=== PATIENT | female | born 1965 | race Caucasian/White ===

== ENCOUNTER 2018-02-23 12:29 | Inpatient (IN) | payer BC, SELFPAY ==
[2018-02-04 08:24] VITALS: BP 189/101; PULSE 54; RESP 16; TEMP 36.6; O2SAT 100; BMI 24.1
[2018-02-04 09:09] LABS: Absolute Lymphocyte Count 2.08 X10^3/ul (0.83-4.51); Absolute Neutrophil Count 4.3 X10^3/uL (2.0-7.7); Basophil# 0.05 X10^3/uL; Basophil% 0.7 % (0-1); Eosinophil# 0.17 X10^3/uL; Eosinophils% 2.3 % (0-5); Hematocrit 42.6 % (37-47); Hemoglobin 14.6 g/dl (12.0-15.0); Lymphocyte # 2.08 X10^3/ul (4.0); Mean Corp Hgb Conc 34.3 g/gl (32-36); Mean Corpuscular Hgb 32.2 pg (27.0-32.0); Mean Corpuscular Volume 93.8 fL (81-99); Mean Platelet Vol. 11.4 fl (6.2-12.0); Monocyte# 0.83 X10^3/uL; Monocyte% 11.2 % (0-10); Neutrophil # 4.28 X10^3/uL (2.7-7.7); Neutrophil % 57.5 % (47-70); POSITIVE COUNT NO; POSITIVE DIFFERENTIAL NO; POSITIVE MORPHOLOGY NO; Platelet Count 215 K/mm3 (150-450); RBC Distribution Width CV 12.8 % (11.6-14.6); RBC Distribution Width SD 43.1 fl (35.1-43.9); Red Blood Count 4.54 M/mm3 (4.2-5.4); White Blood Count 7.4 K/mm3 (4.4-11.0)
[2018-02-04 09:32] LABS: Anion Gap 6 (5-15); BUN 14 mg/dL (7-18); BUN/Creat Ratio 18.9 RATIO (10-20); Calcium,Total 9.1 mg/dL (8.5-10.1); Chloride 108 mmol/L (98-107); Creatinine, Serum 0.74 mg/dL (0.55-1.02); EST Glomerular Filtration Rate 87 mL/min (>60); Est Glom Filt Rate - Afr Amer 106 mL/min (>60); Estimated Creatinine Clearance 67.11 ml/min; Glucose 73 mg/dL (74-106); Potassium 4.2 mmol/L (3.5-5.1); Sodium Level 143 mmol/L (136-145)
--- NOTE | 2018-02-04 13:46 | PCM.HP.BLA ---
History and Physical DATE OF SURGERY: 02/23/2018 SCHEDULED PROCEDURE: Left total knee arthroplasty HISTORY OF PRESENT ILLNESS: This is a 52-year-old female who is been having ongoing left knee pain since June 2017. Patient has had a previous right total knee arthroplasty in 2013 at an outside institution. Patient states the left knee is constant pain. She has increased pain going up and down stairs, walking any amount of distance, driving, weightbearing and twisting activities. Ice is been temporarily helpful. Patient has difficult time with activities of daily living including housework, shopping, and leisure activities such as water skiing, running, and walking. Patient feels unsafe riding a motorcycle and picking up weights and walking. Patient does report start up pain. Pain is primarily located over the medial joint line and behind her patella. Pain does awaken her at night. Patient has tried conservative measures consisting of rest, ice, heat, elevation with minimal relief. She has had a previous corticosteroid injection with no relief in symptoms. She has also been through series of Euflexxa injections with no relief in symptoms. Patient has tried home exercises with no relief. She has tried bracing for the past 5 months with no relief. Patient has been on Percocet the last 4-1/2 years for pain in the right knee. She denies previous surgery on the left knee. After failing conservative measures and discussing all treatment options with Dr. Carty the patient would like to proceed with a left total knee arthroplasty. Patient currently denies any chest pain, shortness of breath, fevers chills, recent infections. We are obtaining surgical clearance from patient's primary care physician Dr. Corrigan. REVIEW OF SYSTEMS: ROS: Const: Denies anorexia, anxiety, change in appetite, fever, difficulty sleeping, weight change. CV: Denies chest pain, heart murmur, irregular heartbeat and peripheral vascular disease. Resp: Denies asthma, cough, pneumonia, sleep apnea, shortness of breath, tuberculosis and wheezing. GI: Denies constipation, diarrhea, heartburn, nausea, rectal itching, bloody stools and vomiting. : . (F Genital Sx) Denies incontinence. Musculo: Denies leg swelling, pain, trouble walking and weakness. Skin: Denies Raynaud's, history of shingles and tattoo. Neuro: Reports numbness/tingling but denies ambulatory dysfunction, dizziness and tremor. Psych: Denies anxiety, depression, insomnia, mental illness and stress. Nain/Lymph: Denies anemia, bleeding/bruising tendency and past transfusion. Reviewed, no changes. PAST MEDICAL HISTORY: Advance Care Plan: No Advance Directives Effective Date: 06/25/2017 PMH: Medical Problems: None Accidents: Fracture - RT LEG, RT ARM RT Knee Injury - (02/06/2011) WORK RELATED Surgical Hx: Appendectomy, Tonsillectomy, Tubal Ligation Arthroscopy - RT RTC X3 RT Knee Arthroscopy - RUSH RT TKR - (2012) NOEL @ [facility] Anesthesia Complications: None Assistive Devices: None Reviewed, no changes. 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 Personal Habits: Cigarette Use: Patient is a current cigarette smoker, smokes every day.Alcohol: Denies use.Drug Use: Denies Use.Enjoy Exercising: Never Exercises. Reviewed and updated. VITALS: Ht: 61.5 Wt: 130lb Wt k.[id number] BMI: 24.2 BP: 140/80 Pulse: 78 Resp: 16 T: 97.8 T: 36.6C ALLERGIES: No Known Drug Allergy MEDICATIONS: Percocet 5-325 mg 1-2 po q 4-6 hr prn pain, Naproxen 500 mg 1 by mouth twice a day as needed with food PRE-OP EXAM: General appearance:NORMAL Other: Eyes: Conjunctivae and lids: NORMAL Pupils: ERR Ears, Nose, Mouth, and Throat: NORMAL Other: Inspection of lips, teeth and gums: NORMAL Other: Neck: Examination of neck: no masses noted. Respiratory: Assessment of respiratory effort: NORMAL Other: Auscultation of lungs: clear to auscultation no wheezes, rhonchi or rales. Cardiovascular: Auscultation of heart: regular rate and rhythm, no murmurs, gallops or rubs. Exam of carotid arteries: NORMAL Other: Gastrointestinal: Exam of abdomen: soft, nontender, nondistended bowel sounds present. PHYSICAL EXAMINATION: Patient walks with an antalgic gait. There is tenderness to palpation over the left knee on the medial joint line. Mild effusion is appreciated. Patient has stable varus and valgus stress testing. Correctable varus alignment. There is positive crepitus with motion. Range of motion patient lacks 3? of full extension to 120? of flexion. Sensations intact light touch. IMAGING STUDIES: 1. X-rays were obtained on January 28, 2018 of the left knee including sunrise, lateral, bilateral standing AP and tunnel reveals varus alignment with medial joint space narrowing, subchondral sclerosis, and osteophyte formation consistent with severe osteoarthritis. IMPRESSION: 1. Left knee severe osteoarthritis with varus alignment PLAN: Dr. Carty did discuss and review with the patient all treatment options including surgical versus nonsurgical. Patient wishes to proceed with above-stated procedure. Potential risks, benefits, and complications of this procedure were discussed in detail including but not limited to , infection, nerve and blood vessel damage, persistent pain, numbness, tingling, paresthesias, blood clot, pulmonary embolism, and requirement for further surgery. The patient expressed full understanding has no further questions for the doctor. Patient does agree to proceed with the above-stated procedure and has signed the surgery consent form. ___ I have re-examined the patient. There are no clinical changes since date of exam. ___ See progress notes for changes. ___ Dictated on admission Date: Time: Signature:
--- NOTE | 2018-02-04 13:53 | HP.PCM_ITS ---
History and Physical DATE OF SURGERY: 02/23/2018 SCHEDULED PROCEDURE: Left total knee arthroplasty HISTORY OF PRESENT ILLNESS: This is a 52-year-old female who is been having ongoing left knee pain since June 2017. Patient has had a previous right total knee arthroplasty in 2013 at an outside institution. Patient states the left knee is constant pain. She has increased pain going up and down stairs, walking any amount of distance, driving, weightbearing and twisting activities. Ice is been temporarily helpful. Patient has difficult time with activities of daily living including housework, shopping, and leisure activities such as water skiing, running, and walking. Patient feels unsafe riding a motorcycle and picking up weights and walking. Patient does report start up pain. Pain is primarily located over the medial joint line and behind her patella. Pain does awaken her at night. Patient has tried conservative measures consisting of rest, ice, heat, elevation with minimal relief. She has had a previous corticosteroid injection with no relief in symptoms. She has also been through series of Euflexxa injections with no relief in symptoms. Patient has tried home exercises with no relief. She has tried bracing for the past 5 months with no relief. Patient has been on Percocet the last 4-1/2 years for pain in the right knee. She denies previous surgery on the left knee. After failing conservative measures and discussing all treatment options with Dr. Carty the patient would like to proceed with a left total knee arthroplasty. Patient currently denies any chest pain, shortness of breath, fevers chills, recent infections. We are obtaining surgical clearance from patient's primary care physician Dr. Corrigan. REVIEW OF SYSTEMS: ROS: Const: Denies anorexia, anxiety, change in appetite, fever, difficulty sleeping , weight change. CV: Denies chest pain, heart murmur, irregular heartbeat and peripheral vascular disease. Resp: Denies asthma, cough, pneumonia, sleep apnea, shortness of breath, tuberculosis and wheezing. GI: Denies constipation, diarrhea, heartburn, nausea, rectal itching, bloody stools and vomiting. : . (F Genital Sx) Denies incontinence. Musculo: Denies leg swelling, pain, trouble walking and weakness. Skin: Denies Raynaud's, history of shingles and tattoo. Neuro: Reports numbness/tingling but denies ambulatory dysfunction, dizziness and tremor. Psych: Denies anxiety, depression, insomnia, mental illness and stress. Nain/Lymph: Denies anemia, bleeding/bruising tendency and past transfusion. Reviewed, no changes. PAST MEDICAL HISTORY: Advance Care Plan: No Advance Directives Effective Date: 06/25/2017 PMH: Medical Problems: None Accidents: Fracture - RT LEG, RT ARM RT Knee Injury - (02/06/2011) WORK RELATED Surgical Hx: Appendectomy, Tonsillectomy, Tubal Ligation Arthroscopy - RT RTC X3 RT Knee Arthroscopy - [facility] RT TKR - (2012) [facility] @ [facility] Anesthesia Complications: None Assistive Devices: None Reviewed, no changes. 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 Personal Habits: Cigarette Use: Patient is a current cigarette smoker, smokes every day.Alcohol: Denies use.Drug Use: Denies Use.Enjoy Exercising: Never Exercises. Reviewed and updated. VITALS: Ht: 61.5 Wt: 130lb Wt k.968 BMI: 24.2 BP: 140/80 Pulse: 78 Resp: 16 T: 97.8 T: 36.6C ALLERGIES: No Known Drug Allergy MEDICATIONS: Percocet 5-325 mg 1-2 po q 4-6 hr prn pain, Naproxen 500 mg 1 by mouth twice a day as needed with food PRE-OP EXAM: General appearance:NORMAL Other: Eyes: Conjunctivae and lids: NORMAL Pupils: ERR Ears, Nose, Mouth, and Throat: NORMAL Other: Inspection of lips, teeth and gums: NORMAL Other: Neck: Examination of neck: no masses noted. Respiratory: Assessment of respiratory effort: NORMAL Other: Auscultation of lungs: clear to auscultation no wheezes, rhonchi or rales. Cardiovascular: Auscultation of heart: regular rate and rhythm, no murmurs, gallops or rubs. Exam of carotid arteries: NORMAL Other: Gastrointestinal: Exam of abdomen: soft, nontender, nondistended bowel sounds present. PHYSICAL EXAMINATION: Patient walks with an antalgic gait. There is tenderness to palpation over the left knee on the medial joint line. Mild effusion is appreciated. Patient has stable varus and valgus stress testing. Correctable varus alignment. There is positive crepitus with motion. Range of motion patient lacks 3? of full extension to 120? of flexion. Sensations intact light touch. IMAGING STUDIES: 1. X-rays were obtained on January 28, 2018 of the left knee including sunrise, lateral, bilateral standing AP and tunnel reveals varus alignment with medial joint space narrowing, subchondral sclerosis, and osteophyte formation consistent with severe osteoarthritis. IMPRESSION: 1. Left knee severe osteoarthritis with varus alignment PLAN: Dr. Carty did discuss and review with the patient all treatment options including surgical versus nonsurgical. Patient wishes to proceed with above- stated procedure. Potential risks, benefits, and complications of this procedure were discussed in detail including but not limited to , infection , nerve and blood vessel damage, persistent pain, numbness, tingling, paresthesias, blood clot, pulmonary embolism, and requirement for further surgery. The patient expressed full understanding has no further questions for the doctor. Patient does agree to proceed with the above-stated procedure and has signed the surgery consent form. ___ I have re-examined the patient. There are no clinical changes since date of exam. ___ See progress notes for changes. ___ Dictated on admission Date: Time: Signature:
--- NOTE | 2018-02-19 11:17 | CASEMGMT ---
Addendum entered by Jolanta Brewster 02/19/18 11:29: Patient states that her cell phone was damaged and she will have a new phone on Friday 02/23. She states to please call her 's cell phone at [phone] for any needs. Home phone number remains the same. Original Note: DAMIÁN SHORE attempted to perform pre-op assessment of discharge needs. Call placed to patient with no answer and no option for voicemail.
--- NOTE | 2018-02-19 11:24 | CASEMGMT ---
DAMIÁN SHORE called and spoke with patient regarding discharge needs after upcoming surgery. Patient states that she has a walker, cane, elevated toilet seat, seat in shower, machine to assist with bending leg, and two ice coolers for legs. She has this equipment from a previous knee surgery in 2013. She denies need for further DME. Patient states that she lives with her and children in a two story home. She has first floor setup, with bedroom and shower. Patient states that she is setup outpatient therapy, with Dr. Carty's on [address]. She states that her will be providing transportation. She is not certain of her first appointment at this time, but does have one scheduled and written down elsewhere. She states that she will need to have her other knee done soon after this surgery. She is interested in discussing home health, as her is a truck shop supervisor and may not always be able to transport her. She states that he will be able to drive her to outpatient therapy for the first couple weeks though. DAMIÁN SHORE will follow up with patient after surgery and will assist with discharge needs.
--- NOTE | 2018-02-23 10:55 | RAD_ITS ---
STUDY: X-RAY - LEFT KNEE REASON FOR EXAM: Female, 52 years old. Postop total knee arthroplasty. TECHNIQUE: 2 view(s) of the knee. COMPARISON: None. Findings: There is a recent total knee arthroplasty. The femoral and tibial components appear in satisfactory position. There has been patellar resurfacing. The visualized femoral, tibial, and fibular shafts are unremarkable. RAD/Knee 1 or 2 Views IMPRESSION: Satisfactory appearance of a total knee arthroplasty. Electronically Signed: Brandon Sierra MD at 22:30 EDT , Service support ,
--- NOTE | 2018-02-23 12:29 | DT_ITS ---
This patient was seen during an EMR downtime February 22, 2018 - March 01, 2018. This patient may have a combination of paper and electronic documentation or all paper documentation. All documentation is viewable within the e-chart portion of [facility] for each patient visit.
[2018-02-27 08:42] LABS: Hematocrit 35.2 % (37-47); Hemoglobin 11.4 g/dl (12.0-15.0); Mean Corp Hgb Conc 32.4 g/gl (32-36); Mean Corpuscular Hgb 31.4 pg (27.0-32.0); Platelet Count 214 K/mm3 (150-450); RBC Distribution Width CV 12.7 % (11.6-14.6); RBC Distribution Width SD 43.5 fl (35.1-43.9); Red Blood Count 3.63 M/mm3 (4.2-5.4); Scan Indicated on CBC? Y/N NO; White Blood Count 19.2 K/mm3 (4.4-11.0)
[2018-02-27 09:27] LABS: Anion Gap 7 (5-15); BUN 13 mg/dL (7-18); BUN/Creat Ratio 16.9 RATIO (10-20); Calcium,Total 8.4 mg/dL (8.5-10.1); Chloride 107 mmol/L (98-107); Creatinine, Serum 0.77 mg/dL (0.55-1.02); EST Glomerular Filtration Rate 84 mL/min (>60); Est Glom Filt Rate - Afr Amer 102 mL/min (>60); Estimated Creatinine Clearance 64.49 ml/min; Glucose 133 mg/dL (74-106); Sodium Level 142 mmol/L (136-145)
== END 2018-02-24 18:15 | disposition home or self-care (01) | DRG 470 ==
LOC: MS3 02-24 10:29
PROVIDERS: Admitting Provider Specialist; Family Provider Family Medicine; PCP Family Medicine; Visit Provider Specialist
PROC: 0SRD0J9 Replacement of Left Knee Joint with Synthetic Substitute, Cemented, Open Approach (ICD-10-PCS; CPT 27447; principal; 2018-02-23 08:30)
DX: M17.12 Unilateral primary osteoarthritis, left knee (principal); F17.210 Nicotine dependence, cigarettes, uncomplicated; Z96.651 Presence of right artificial knee joint; I10 Essential (primary) hypertension; M19.90 Unspecified osteoarthritis, unspecified site
CPT/HCPCS: 36415; 73560; 80048; 85025; 85027; 87081; 93005; 97116; 97162; 97166; 97530; 97535; C1776; J7120; A4216; J2405

== ENCOUNTER → 2022-12-09 | Outpatient (CLI) | payer OTHER, SELFPAY ==
[2022-12-09 10:47] LABS: Mucous, Urine 0 SEEN /hpf (<or=2+)
[2022-12-09 11:31] LABS: Color, Urine Yellow (Yellow); Glucose, Dipstick Normal (Normal); Ketone-Dipstick Negative (Negative); Leukocyte Esterase-Dipstick 500 /ul (Negative); Nitrite-Dipstick Positive (Negative); Occult Blood-Urine 50 /ul (Negative); Protein-Dipstick 30 mg/dl (Negative); Specific Gravity, Urine 1.015 (1.002-1.030); Urine Bilirubin Dipstick Negative (Negative); Urine Clarity Clear (Clear); Urine Urobilinogen Normal (Normal)
[2022-12-09 11:42] LABS: Bacteria 1+ /hpf (None Seen); Red Blood Cells-Urine 0-5 SEEN /hpf (0-5); Squamous Epithelial Cells - UA 0-5 SEEN /hpf (5-10); White Blood Cells 25-50 SEEN /hpf (0-5)
== END | disposition home or self-care (01) ==
PROVIDERS: Visit Provider Physician Assistant
DX: R39.9 Unspecified symptoms and signs involving the genitourinary system (principal)
CPT/HCPCS: 81001; 87077; 87086; 87088; 87186

== ENCOUNTER 2023-05-27 17:49 | Emergency (ER) | payer OTHER, SELFPAY ==
[2023-05-27 17:51] VITALS: BP 112/83; PULSE 83; RESP 17; TEMP 36.3; O2SAT 98
[2023-05-27 19:15] LABS: Bacteria 0 SEEN /hpf (None Seen)
[2023-05-27 19:17] LABS: Absolute Lymphocyte Count 1.33 X10^3/uL (0.83-4.51); Absolute Neutrophil Count 7.2 X10^3/uL (2.0-7.7); Basophil# 0.03 X10^3/uL; Basophil% 0.3 % (0-1); Hematocrit 49.4 % (37-47); Hemoglobin 16.3 g/dL (12.0-15.0); Lymphocyte # 1.33 X10^3/ul (0.83-4.51); Lymphocyte % 13.5 % (19-41); Mean Corpuscular Hgb 30.9 pg (27.0-32.0); Mean Corpuscular Volume 93.7 fL (81-99); Mean Platelet Vol. 10.7 fl (6.2-12.0); Monocyte# 1.21 X10^3/uL; Monocyte% 12.3 % (0-10); NRBC Flagged by Analyzer 0 % (0-5); Neutrophil # 7.22 X10^3/uL (2.7-7.7); Neutrophil % 73.5 % (47-70); Platelet Count 201 K/mm3 (150-450); RBC Distribution Width CV 13.1 % (11.6-14.6); RBC Distribution Width SD 44.8 fl (35.1-43.9); Red Blood Count 5.27 M/mm3 (4.2-5.4); White Blood Count 9.8 K/mm3 (4.4-11.0)
[2023-05-27 19:19] LABS: Color, Urine Yellow (Yellow); Glucose, Dipstick Normal (Normal); Ketone-Dipstick 5 mg/dl (Negative); Leukocyte Esterase-Dipstick 100 /ul (Negative); Nitrite-Dipstick Negative (Negative); Occult Blood-Urine 250 /ul (Negative); Protein-Dipstick 100 mg/dl (Negative); Urine Clarity Clear (Clear); Urine Urobilinogen 1 mg/dl (Normal)
[2023-05-27 19:24] LABS: Urine Bilirubin Dipstick 1 mg/dL (Negative)
[2023-05-27 19:29] LABS: Red Blood Cells-Urine 0-5 SEEN /hpf (0-5); Squamous Epithelial Cells - UA 0-5 SEEN /hpf (5-10); White Blood Cells 5-10 SEEN /hpf (0-5)
[2023-05-27 19:33] LABS: Anion Gap 5 (5-15); BUN 22 mg/dL (7-18); BUN/Creat Ratio 22.8 RATIO (10-20); Calcium,Total 9.1 mg/dL (8.5-10.1); Chloride 102 mmol/L (98-107); Creatinine, Serum 0.96 mg/dL (0.55-1.02); EST Glomerular Filtration Rate 63 mL/min (>60); Est Glom Filt Rate - Afr Amer 76 mL/min (>60); Estimated Creatinine Clearance 50.83 ml/min; Glucose 94 mg/dL (74-106); Hyaline Cast 0-5 SEEN /lpf (0-5); Mucous, Urine 2+ /hpf (<or=2+); Potassium 4.1 mmol/L (3.5-5.1); Sodium Level 135 mmol/L (136-145)
--- NOTE | 2023-05-27 19:38 | CT_ITS ---
ACR Level 3 findings have been noted. An addendum which confirms receipt of the report will follow. STUDY: CT ABDOMEN AND PELVIS WITH CONTRAST REASON FOR EXAM: Female, 57 years old. Pain, weight loss RADIATION DOSAGE (If Supplied By Facility): CTDIvol = ( 12.15 ) mGy, DLP = ( 210.02 ) mGycm TECHNIQUE: Transaxial images were obtained from the dome of the diaphragm to the symphysis pubis without oral contrast. IV 100mL Isovue-300 was administered. Sagittal and coronal images were reconstructed. Individualized dose optimization techniques were used for this CT. COMPARISON: September 18, 2015 FINDINGS: The visualized lung bases are unremarkable. The visualized portions of the heart are within normal limits. There is 1.9 cm hypodense mass in the right lower liver small calcification. Normal gallbladder and extrahepatic biliary system. Normal spleen. Normal pancreas. Normal bilateral adrenal glands. Normal right kidney. Normal left kidney. Normal visualized stomach. There is moderate fluid and gaseous distention of small intestine. Normal colon. There is non-visualization of the appendix. There is diffuse atherosclerotic calcification of the abdominal aorta, without a demonstrated aneurysm. Normal inferior vena cava. Normal retroperitoneum. Normal urinary bladder. Normal visualized uterus. There is no free fluid in the abdomen or pelvis. Normal abdominal wall. Normal osseous structures. CT/Abdomen/Pelvis W IV Cont ONLY IMPRESSION: Small bowel distention with obstruction versus ileus. Electronically Signed: Jimmy Duenas MD at 20:47 EDT ,
--- NOTE | 2023-05-27 19:39 | EX.ED.DYSGE1 ---
HPI History of Present Illness Chief Complaint: Nausea/Vomiting/Diarrhea Informant: patient and spouse/S.O. Narrative Narrative: Nausea vomiting and diarrhea. Patient states that Thursday she and her ate fish. Ever since then she has had nausea vomiting diarrhea and just cannot keep anything down. She still has an appetite. No blood has been seen. No fevers. She states she has pain in her abdomen because of the vomiting but not generalized pain. No back pain. She does not drink alcohol has no history of pancreatitis. On further review of systems I find that the patient has been losing weight since February of this year. She is gone from about 146 pounds down to about 109 pounds. She states she cut out ice cream in the evening but other than that she has not been trying to lose weight and is concerned about this. But she was not having nausea vomiting diarrhea until just the last 3 or 4 days. She has had prior appendectomy. Still has her gallbladder. She later states that she thinks they took her gallbladder out in her mid 20s when they took her appendix out. But she is not certain. No history of cancers. She is on no daily medications. She used to be on thyroid meds but has been off for several years. No known allergies [facility] Medical History Hypertension Urinary tract infection with hematuria Home Medications lisinopril 5 mg tablet (Prinivil) 5 mg PO DAILY BP 02/04/18 [History Last Taken Unknown] ondansetron 4 mg disintegrating tablet 4 mg PO Q8H PRN PRN Nausea #10 tabs 05/27/23 [Rx Last Taken Unknown] promethazine 25 mg tablet 25 mg PO Q6H PRN PRN Nausea #10 TABLETS 05/27/23 [Rx Last Taken Unknown] Allergy/AdvReac Type Severity Reaction Status Date / Time No Known Allergies Allergy Verified 05/27/23 17:50 Social History Smoking Status: Current every day smoker tobacco type: cigarettes ROS ROS ED ROS Narrative A complete review of systems was performed and is negative except as documented in the history of present illness. Some specific details below. Constitutional: No recent fevers or chills. EYE: No visual complaints or pain. No change in eye color. ENT: No difficulty swallowing. No swelling. No pain. No GERD symptoms. CV: No chest pain or palpitations. Respiratory: No dyspnea. No hemoptysis. No difficulty taking breaths. GI: Please see history of present illness. : No frequency dysuria or hematuria. Decreased amount. Musculoskeletal: No recent trauma. No pains. Skin: No rash. Nondiaphoretic. Neuro: No weakness or numbness. Endocrine: No polyuria or polydipsia. EXAM Physical Exam Narrative Exam Narrative: CONSTITUTIONAL: Patient is nontoxic in appearance. The patient looks comfortable. HEENT: No notable trauma. Mucous membranes look a bit dry. No sinus tenderness. No indication of pain with swallowing. EYES: No conjunctival injection. No proptosis. CARDIOVASCULAR: Regular rate. Regular rhythm. No notable murmur. No JVD. RESPIRATORY: No respiratory distress. Breathing is unlabored. No wheezes. No rhonchi. No rales. No pain with a deep breath. GASTROINTESTINAL: Not distended. Bowel sounds are normal. No tenderness. No guarding. No rebound. No palpable mass. No bruit. Is thin but otherwise no marked abnormality. GENITOURINARY: No tenderness over the bladder. No CVA tenderness. MUSCULOSKELETAL: Atraumatic. No peripheral edema. No cord. No tenderness along the deep venous system. No asymmetry. NEUROLOGICAL: Patient is alert and appropriate. No focal deficit noted. SKIN: No noted rashes. No diaphoresis. PSYCHIATRIC: Patient is calm. Mood is appropriate. Const Vital Signs: 05/27/23 17:51 05/27/23 21:13 Temperature 97.4 F L Temperature Source Temporal Pulse Rate 83 Respiratory Rate 17 Blood Pressure 112/83 H 138/74 H Blood Pressure Mean 92 95 Pulse Ox 98 98 Oxygen Delivery Method Room Air Room Air MDM MDM MDM Narrative Medical decision making narrative: BC shows elevated hemoglobin which I suspect is from mild dehydration. White counts normal platelets are normal. Electrolytes showed mild dehydration with elevated BUN to creatinine ratio but not significantly so. Sodium is just minimally low at 135. She is given IV fluids here. Liver function test show no acute abnormality. Lipase is normal. Urine does not show any convincing sign of section. My independent interpretation of the patient's CT of the abdomen does show acute distended bowel loops. Her CT does show gallbladder is present. There is a cystic structure in the lateral aspect of the liver. Final radiology reading shows small bowel distention with ileus versus obstruction. Patient CT reading is not real consistent with all her symptoms. She has had prior appendectomy. But this is not the highest risk for fraction. Her abdomen is not at all distended despite several days of symptoms. She is still passing gas here. She is still having bowel movements here. She still has good bowel sounds if anything they are slightly increased. This leans against an ileus. Nausea and vomiting certainly supports an ileus. But she has bowel sounds which is against it and she is still moving her bowels regularly which is against an obstruction. She feels much better. She would like to go home. She would like to have a day or 2 off of work to recover. We have watched her for a period of time. She is tolerated liquids. Her nausea is gone. Her abdomen is essentially benign. There is no tenderness. Is not distended and has good bowel sounds. I will write her for Zofran and Phenergan. We did discuss in details of symptoms that would bring her back which would include worsening pain, fever, distention, not moving bowels, or worsening nausea vomiting or any blood in the stool or vomitus or other concerns. Lab Data Attestation: I reviewed the patient's lab results. Labs: Laboratory Results - last 24 hr 05/27/23 19:00 WBC 9.8 RBC 5.27 Hgb 16.3 H Hct 49.4 H MCV 93.7 MCH 30.9 MCHC 33.0 RDW Std Deviation 44.8 H RDW Coeff of Lizbet 13.1 Plt Count 201 MPV 10.7 Immature Gran % (Auto) 0.400 Neut % (Auto) 73.5 H Lymph % (Auto) 13.5 L T[place] % (Auto) 12.3 H Eos % (Auto) 0.0 Baso % (Auto) 0.3 Absolute Neuts (auto) 7.2 Absolute Lymphs (auto) 1.33 Nucleated RBC % 0 Sodium 135 L Potassium 4.1 Chloride 102 Carbon Dioxide 28.0 Anion Gap 5 BUN 22 H Creatinine 0.96 Estim Creat Clear Calc 50.83 Est GFR (MDRD) Af Amer 76 Est GFR (MDRD) Non-Af 63 BUN/Creatinine Ratio 22.8 H Glucose 94 Calcium 9.1 Total Bilirubin 0.40 Direct Bilirubin 0.14 AST 30 ALT 22 Alkaline Phosphatase 110 Total Protein 7.8 Albumin 3.9 Globulin 3.9 Lipase 28 Urine Color Yellow Urine Clarity Clear Urine pH 6.0 Ur Specific Manning 1.020 Urine Protein 100 H Urine Glucose (UA) Normal Urine Ketones 5 H Urine Occult Blood 250 H Urine Nitrite Negative Urine Bilirubin 1 H Urine Urobilinogen 1 H Ur Leukocyte Esterase 100 H Urine RBC 0-5 SEEN Urine WBC 5-10 SEEN Ur Squamous Epith Cells 0-5 SEEN Urine Bacteria 0 SEEN Hyaline Casts 0-5 SEEN Urine Mucus 2+ Radiography Diagnostic Testing: Clinical Impression(s) from Imaging Studies Abdomen/Pelvis CT 05/27/23 19:38 IMPRESSION: Small bowel distention with obstruction versus ileus. Electronically Signed: Jimmy Duenas MD at 20:47 EDT , ADDENDUM: 05/27/232106 IMPRESSION: Small bowel distention with obstruction versus ileus. N.B. : Joey Crenshaw MD, confirmed on 05/27/2023 21:00:08 (ET) that the healthcare facility has received the radiology report. Electronically Signed: Jimmy Duenas MD at 20:47 EDT , Discharge Plan Triage Chief Complaint: Nausea/Vomiting/Diarrhea ED Provider: Joey Crenshaw Dx/Rx/DC Orders Clinical Impression: Nausea vomiting and diarrhea, History of weight loss Instructions: ED Diet Vomiting Diarrhea Prescriptions: New promethazine [promethazine] 25 mg tablet 25 mg PO Q6H PRN PRN (Reason: Nausea) Qty: 10 0RF ondansetron [ondansetron] 4 mg tablet,disintegrating 4 mg PO Q8H PRN PRN (Reason: Nausea) Qty: 10 0RF No Action lisinopril [Prinivil] 5 MG tablet 5 mg PO DAILY Stand Alone Forms: ED Work / School Excuse Primary Care Provider: Care Physician,No Primary Referrals: Francis Nieto MD [Med Staff - Call Center Consultant] - 3-5 Days Care Physician,No Primary [Primary Care Provider] - Disposition Disposition: Home, Self Care
[2023-05-27] MEDS: 0.9% Normal Saline 1,000 ML 999 ML IV (19:44)
[2023-05-27] MEDS: Ondansetron 4 MG/2 ML Vial IV (19:45)
[2023-05-27 19:59] LABS: Lipase 28 U/L (13-75)
[2023-05-27 20:03] LABS: AST(SGOT) 30 U/L (15-37); Alanine Aminotransfer ALT/SGPT 22 U/L (13-56); Albumin, Serum 3.9 g/dL (3.2-5.0); Alkaline Phosphatase 110 U/L (45-117); Bilirubin, Direct 0.14 mg/dL (0.00-0.30); Globulin 3.9 g/dL (2.2-4.2); Protein, Total 7.8 g/dL (6.4-8.2)
[2023-05-27 21:13] VITALS: BP 138/74; O2SAT 98
[2023-05-27] MEDS: proMETHazine 25 MG/ML Syringe 12.5 MG IM (21:34)
== END 2023-05-27 22:40 | disposition home or self-care (01) ==
PROVIDERS: Emergency Provider Emergency Medicine; Visit Provider Emergency Medicine
DX: R11.2 Nausea with vomiting, unspecified (principal); R19.7 Diarrhea, unspecified; F17.210 Nicotine dependence, cigarettes, uncomplicated; I10 Essential (primary) hypertension; Z79.899 Other long term (current) drug therapy
CPT/HCPCS: 74177; 80048; 80076; 81001; 83690; 85025; 96372; 96374; 99282; J7030; Q9967; A4216; J2405

== ENCOUNTER 2023-05-29 18:43 | Emergency (ER) | payer OTHER, SELFPAY ==
[2023-05-29 18:44] VITALS: BP 125/76; PULSE 69; RESP 16; TEMP 36.3; O2SAT 98; BMI 20.4
--- NOTE | 2023-05-29 21:24 | EDS_ITS ---
HPI HPI - GI History of Present Illness Chief Complaint: GI Bleed Narrative Narrative: 57-year-old female presenting with one-time rectal bleeding. She was seen a couple days ago for nausea, vomiting, diarrhea. She states that is otherwise been improved. 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 The bleeding has resolved. She does not have lightheadedness, dizziness, nausea, shortness of breath. Patient is not on any blood thinners. Denies any trauma. Blood work-up and CT scan were otherwise unremarkable previously. [facility] Medical History Hypertension Urinary tract infection with hematuria Home Medications lisinopril 5 mg tablet (Prinivil) 5 mg PO DAILY BP 02/04/18 [History Last Taken Unknown] ondansetron 4 mg disintegrating tablet 4 mg PO Q8H PRN PRN Nausea #10 tabs 05/27/23 [Rx Last Taken Unknown] promethazine 25 mg tablet 25 mg PO Q6H PRN PRN Nausea #10 TABLETS 05/27/23 [Rx Last Taken Unknown] Allergy/AdvReac Type Severity Reaction Status Date / Time No Known Allergies Allergy Verified 05/29/23 18:43 Social History Smoking Status: Current every day smoker tobacco type: cigarettes ROS ROS ED Constitutional Constitutional ED: Denies chills, fever(s) or sweats Eyes Eyes: Denies blurry vision or change in vision ENT ENT ED: Denies ear pain or sore throat Cardiovascular Cardiovascular: Denies chest pain, palpitations or racing heartbeat Respiratory/Chest Respiratory/Chest: Denies cough, dyspnea or sputum Gastrointestinal Gastrointestinal: Reports other Details: Blood from rectum ; Denies abdominal pain, constipation, diarrhea, nausea or vomiting Genitourinary Genitourinary ED: Denies dysuria, hematuria or urinary frequency Musculoskeletal Musculoskeletal: Denies arthralgias, myalgias or neck pain Integumentary Denies abscess, Abrasions or rash Neurologic Neurologic: Denies headache(s), paresthesias or weakness Psychiatric Psychiatric: Denies anxiety, depression, suicidal ideation or suicidal thoughts Endocrine Endocrinology: Denies polydipsia or polyuria EXAM Physical Exam Const Vital Signs: 05/29/23 18:44 Temperature 97.3 F L Temperature Source Temporal Pulse Rate 69 Respiratory Rate 16 Blood Pressure 125/76 H Blood Pressure Mean 92 Pulse Ox 98 Oxygen Delivery Method Room Air Positive well nourished General Appearance ED: NAD HEENT Reports moist mucous membranes normocephalic and atraumatic Eyes PERRL and EOMs intact bilaterally General Eye ED: Negative for pale conjunctiva Resp normal respiratory effort Effort and Inspection: Negative for respiratory distress Cardio regular rate and regular rhythm GI non-tender GI Narrative: Rectal exam no hemorrhoids. No bright red bleeding. No black stool. Neuro CN's II-XII intact bilaterally Sensorium / Orientation: alert Motor Exam: strength 5/5 throughout Psych mental status grossly normal Skin no wounds MDM MDM MDM Narrative Medical decision making narrative: Patient presenting with blood from her rectum x1. Recently had nausea, vom iting, diarrhea for few days. I suspect the bleeding is benign. Rectal exam is normal. I do not think is from taking Phenergan. Patient counseled this would likely self resolve and she is not on any blood thinners. I counseled her that if she starts to see more bleeding or become symptomatic she should return to the ED for further evaluation. Patient discharged home in stable condition. Impression: 1. Lower GI bleed stable Discharge Plan Triage Chief Complaint: GI Bleed ED Provider: Johnathan Alonzo Dx/Rx/DC Orders Instructions: ED Lower GI Bleeding (Stable) Prescriptions: No Action lisinopril [Prinivil] 5 MG tablet 5 mg PO DAILY promethazine [promethazine] 25 mg tablet 25 mg PO Q6H PRN PRN (Reason: Nausea) Qty: 10 0RF ondansetron [ondansetron] 4 mg tablet,disintegrating 4 mg PO Q8H PRN PRN (Reason: Nausea) Qty: 10 0RF Primary Care Provider: Care Physician,No Primary Referrals: Friend,Chance, DO [Med Staff - Active Staff] - 3-5 Days Care Physician,No Primary [Primary Care Provider] - Disposition Disposition: Home, Self Care
--- NOTE | 2023-05-29 21:26 | ED.RN ---
patient got tired of waiting for discharge instructions and left without
== END 2023-05-29 21:27 | disposition home or self-care (01) ==
PROVIDERS: Emergency Provider Student in an Organized Health Care Education/Training Program; Visit Provider Student in an Organized Health Care Education/Training Program
DX: K92.2 Gastrointestinal hemorrhage, unspecified (principal); F17.210 Nicotine dependence, cigarettes, uncomplicated; I10 Essential (primary) hypertension; Z79.899 Other long term (current) drug therapy
CPT/HCPCS: 99282

== ENCOUNTER 2023-12-23 19:29 | Emergency (ER) | payer OTHER, SELFPAY ==
[2023-12-23 19:30] VITALS: BP 174/87; PULSE 62; RESP 16; TEMP 36.6; O2SAT 100; BMI 21.6
[2023-12-23 19:32] VITALS: BP 171/90; PULSE 82; RESP 16; TEMP 36.7; O2SAT 97
[2023-12-23 20:32] VITALS: BP 153/107; PULSE 88; RESP 16; TEMP 36.9; O2SAT 98
--- NOTE | 2023-12-23 20:32 | EX.ED.DYSGE1 ---
HPI History of Present Illness Chief Complaint: Complaint Informant: patient Onset/Context/Timing Context: Gradual Onset Timing: Continuous Current Severity: Mild Maximum Severity: Mild Narrative Narrative: 58-year-old female recently diagnosed with UTI at the [facility] urgent care. Was started on Macrobid she has been on 4 to 5 days started having itching it has gotten worse. Also has a history of hypertension but currently her primary care physician retired and she has not had a primary care physician has been out of her blood pressure medication since May. So she has been off her meds about 7 months. Today went back to the urgent care and they want her seen in the emergency department. States her blood pressure has been running 170s 180s systolic. She denies any headache or chest pain. She does think she developed a rash that itches from the recent antibiotic Macrobid. Prior similar symptoms: Yes Recent Illness/Hospitalization: No PFSH PFSH Medical History Hypertension Urinary tract infection with hematuria Home Medications lisinopril 5 mg tablet (Prinivil) 5 mg PO DAILY BP 02/04/18 [History Last Taken Unknown] ondansetron 4 mg disintegrating tablet 4 mg PO Q8H PRN PRN Nausea #10 tabs 05/27/23 [Rx Last Taken Unknown] promethazine 25 mg tablet 25 mg PO Q6H PRN PRN Nausea #10 TABLETS 05/27/23 [Rx Last Taken Unknown] lisinopril 10 mg tablet 10 mg PO DAILY 3 days #3 tabs 12/23/23 [Rx Last Taken Unknown] Allergy/AdvReac Type Severity Reaction Status Date / Time hydrocodone AdvReac Nausea Verified 12/23/23 19:32 Social History Smoking Status: Current every day smoker tobacco type: cigarettes ROS ROS ED ROS Narrative Recent dysuria. Itching rash from recent antibiotic use. Elevated blood pressure. Review of Systems ROS Unobtainable: Denies due to encephalopathy Constitutional Constitutional ED: Denies chills or fever(s) Eyes Eyes: Denies blurry vision ENT ENT ED: Denies ear pain Cardiovascular Cardiovascular: Denies chest pain or palpitations Respiratory/Chest Respiratory/Chest: Denies cough or dyspnea Gastrointestinal Gastrointestinal: Denies abdominal pain, constipation, diarrhea, melena, nausea or vomiting Genitourinary Genitourinary ED: Reports dysuria; Denies hematuria Musculoskeletal Musculoskeletal: Denies arthralgias or back pain Integumentary Reports rash; Denies abscess or Abrasions Neurologic Neurologic: Denies headache(s) Psychiatric Psychiatric: Denies anxiety or depression Endocrine Endocrinology: Denies cold intolerance Hematologic/Lymphatic Hematologic/Lymphatic: Reports none Allergic/Immunologic Allergic/Immunologic ED: Denies mouth swelling, tongue swelling or urticaria EXAM Physical Exam Narrative Exam Narrative: Well-appearing 58-year-old female. Vital signs stable initial blood pressure elevated 174/87. History of hypertension off her meds. H EENT exam unremarkable. Mytrex members. Neck nontender no lymphadenopathy. Lungs clear to auscultation bilaterally. Heart regular rhythm no murmur. Abdomen soft nontender. Normal bowel sounds no peritoneal signs. Moving all 4 extremities. Nontender no edema. She has some excoriations from scratching. No significant rash. No cellulitis. Neurologically she is awake and alert with no focal motor deficits. Const Vital Signs: 12/23/23 19:30 12/23/23 19:32 12/23/23 20:32 Temperature 97.8 F 98.1 F 98.4 F Temperature Source Temporal Axillary Oral Pulse Rate 62 82 88 Respiratory Rate 16 16 16 Blood Pressure 174/87 H 171/90 H 153/107 H Blood Pressure Mean 116 117 122 Pulse Ox 100 97 98 Oxygen Delivery Method Room Air Room Air Room Air 12/23/23 21:00 Temperature 98.3 F Temperature Source Oral Pulse Rate 80 Respiratory Rate 16 Blood Pressure 163/75 H Blood Pressure Mean 104 Pulse Ox 98 Oxygen Delivery Method Room Air Positive well nourished and well developed; Negative for obese, cachectic, contractures or unkempt General Appearance ED: well developed and NAD; Negative for unkempt, cachectic, contractures, cyanotic, diaphoretic or pallor Nutritional Appearance: Negative for cachectic or obese HEENT Reports moist mucous membranes; Denies dry mucous membranes Negative for trauma or tenderness Mouth ED: No dry mucous membranes Mouth: No dry mucous membranes Eyes PERRL and EOMs intact bilaterally General Eye ED: Negative for pale conjunctiva, scleral icterus or other Neck no lymphadenopathy, supple and no JVD General: Negative for tenderness Lymph Lymphatic: Negative for other Chest Wall inspection of chest normal and palpation of chest normal Chest: Negative for other Resp normal respiratory effort and clear to auscultation bilaterally Effort and Inspection: Negative for retractions or pain with movement Auscultation: Negative for rales, rhonchi or wheezes Cardio regular rate, regular rhythm, S1 normal heart sound, S2 normal heart sound and no murmurs Palpation: Negative for palpable S3 or palpable S4 Rate: Negative for bradycardia or tachycardic Rhythm: Negative for abnormal rhythm GI normal to inspection, nondistended, normoactive bowel sounds, non-tender and non-distended Inspection: Negative for abdominal distention Auscultation: normoactive bowel sounds Palpation: soft; Negative for tender, guarding or rebound tenderness present Back/Spine no CVA tenderness General Back: Negative for CVA tenderness Cervical Spine: Negative for cervical spine tenderness Thoracic Spine / Upper Back: Negative for thoracic spinal tenderness or paraspinal muscle tenderness Lumbar Spine / Lower Back: Negative for lumbar spinal tenderness Extremity normal to inspection Extremity Narrative: Excoriations on her skin from scratching. No significant rash. General Extremety ED: Negative for edema or tenderness General Extremity: Negative for edema Neuro oriented x3 and CN's II-XII intact bilaterally Sensorium / Orientation: alert; Negative for orientation impaired, lethargic or stuporous Motor Exam: strength 5/5 throughout Psych mental status grossly normal Appearance: Negative for unkempt Attitude: No agitated Mood & Affect: Negative for depressed, anxious or tearful Skin no rashes or lesions noted, no wounds and skin turgor normal General Skin Exam: elasticity normal; Negative for jaundice or pallor Lesions: No lesion noted Rashes: No rashes noted Trauma: Negative for abrasion Wounds: Negative for wounds noted MDM MDM MDM Narrative Medical decision making narrative: Patient with possible recent UTI. Has been on Macrobid and is now itching most likely allergic reaction to the antibiotic. Will check a UA to see if there is any signs of infection. Also acute on chronic hypertension has been off her blood pressure med for about 7 months. CBC and chemistry will be evaluated to check her kidney function. Repeat exam 01 in the patient's room and she told the nurse that she had to leave because she had a work-related appointment to get some sleep. I was able to reach her by her cell phone. We discussed all of her test results being normal. Her UA is currently normal. She will stop the antibiotic. Use Benadryl for itching. And I sent her in a prescription for lisinopril. She will follow-up with her primary care physician. She is comfortable with the plan. History & Record Review Discussion w/independent historian: Patient Additional record(s) reviewed:: Prior inpatient record, Prior outpatient record, Prior ED visit and Prior labs Lab Data Attestation: I reviewed the patient's lab results. Lab results narrative: CBC normal. White count 8. H&H 13 and 40. Platelets 263. Electrolytes show gap 4. BUN 19 creatinine 0.9. Glucose 92. Urinalysis shows no nitrates. No white or red cells. No bacteria. Labs: Laboratory Results - last 24 hr 12/23/23 20:42 WBC 8.7 RBC 4.32 Hgb 13.5 Hct 40.4 MCV 93.5 MCH 31.3 MCHC 33.4 RDW Std Deviation 42.5 RDW Coeff of Lizbet 12.3 Plt Count 263 MPV 10.5 Immature Gran % (Auto) 0.200 Neut % (Auto) 47.9 Lymph % (Auto) 37.8 [place] % (Auto) 10.7 H Eos % (Auto) 2.6 Baso % (Auto) 0.8 Absolute Neuts (auto) 4.2 Absolute Lymphs (auto) 3.30 Nucleated RBC % 0 Sodium 141 Potassium 4.2 Chloride 106 Carbon Dioxide 31.0 Anion Gap 4 L BUN 19 H Creatinine 0.94 Estim Creat Clear Calc 51.60 Est GFR (MDRD) Af Amer 78 Est GFR (MDRD) Non-Af 65 BUN/Creatinine Ratio 20.1 H Glucose 92 Calcium 9.2 Urine Color Yellow Urine Clarity Clear Urine pH 7.0 Ur Specific [place] 1.010 Urine Protein Negative Urine Glucose (UA) Normal Urine Ketones Negative Urine Occult Blood 25 H Urine Nitrite Negative Urine Bilirubin Negative Urine Urobilinogen Normal Ur Leukocyte Esterase 25 H Urine RBC 0-5 SEEN Urine WBC 0-5 SEEN Ur Squamous Epith Cells 0 SEEN Urine Bacteria 0 SEEN Urine Mucus 0 SEEN Discharge Plan Triage Chief Complaint: Complaint ED Provider: Del Dempsey Dx/Rx/DC Orders Clinical Impression: Has run out of medications, Chronic hypertension, Allergic reaction Prescriptions: New lisinopril 10 mg tablet 10 mg PO DAILY 3 Days Qty: 3 1RF No Action lisinopril [Prinivil] 5 MG tablet 5 mg PO DAILY promethazine [promethazine] 25 mg tablet 25 mg PO Q6H PRN PRN (Reason: Nausea) Qty: 10 0RF ondansetron [ondansetron] 4 mg tablet,disintegrating 4 mg PO Q8H PRN PRN (Reason: Nausea) Qty: 10 0RF Primary Care Provider: Care Physician,No Primary Referrals: Care Physician,No Primary [Primary Care Provider] - Activity Restrictions/Additional Instructions: Patient left prior to discharge she had to get to work earlier this morning. Went home to get some sleep. I spoke with her via phone and went over all of her test results. I sent in a prescription for lisinopril 10 mg/day #30 with 1 refill. She will follow-up as needed. Disposition Disposition: Home, Self Care
[2023-12-23 20:51] LABS: Absolute Neutrophil Count 4.2 X10^3/uL (2.0-7.7); Basophil# 0.07 X10^3/uL; Basophil% 0.8 % (0-1); Eosinophil# 0.23 X10^3/uL; Eosinophils% 2.6 % (0-5); Hematocrit 40.4 % (37-47); Hemoglobin 13.5 g/dL (12.0-15.0); Lymphocyte % 37.8 % (19-41); Mean Corp Hgb Conc 33.4 g/dL (32-36); Mean Corpuscular Hgb 31.3 pg (27.0-32.0); Mean Corpuscular Volume 93.5 fL (81-99); Mean Platelet Vol. 10.5 fl (6.2-12.0); Monocyte# 0.93 X10^3/uL; Monocyte% 10.7 % (0-10); NRBC Flagged by Analyzer 0 % (0-5); Neutrophil # 4.17 X10^3/uL (2.7-7.7); Neutrophil % 47.9 % (47-70); Platelet Count 263 K/mm3 (150-450); RBC Distribution Width CV 12.3 % (11.6-14.6); RBC Distribution Width SD 42.5 fl (35.1-43.9); Red Blood Count 4.32 M/mm3 (4.2-5.4); White Blood Count 8.7 K/mm3 (4.4-11.0)
[2023-12-23 21:00] VITALS: BP 163/75; PULSE 80; RESP 16; TEMP 36.8; O2SAT 98
[2023-12-23 21:07] LABS: Anion Gap 4 (5-15); BUN 19 mg/dL (7-18); BUN/Creat Ratio 20.1 RATIO (10-20); Calcium,Total 9.2 mg/dL (8.5-10.1); Chloride 106 mmol/L (98-107); Creatinine, Serum 0.94 mg/dL (0.55-1.02); EST Glomerular Filtration Rate 65 mL/min (>60); Est Glom Filt Rate - Afr Amer 78 mL/min (>60); Glucose 92 mg/dL (74-106); Potassium 4.2 mmol/L (3.5-5.1); Sodium Level 141 mmol/L (136-145)
[2023-12-23 21:15] LABS: Bacteria 0 SEEN /hpf (None Seen); Mucous, Urine 0 SEEN /hpf (<or=2+); Squamous Epithelial Cells - UA 0 SEEN /hpf (5-10)
[2023-12-23 21:16] LABS: Color, Urine Yellow (Yellow); Glucose, Dipstick Normal (Normal); Ketone-Dipstick Negative (Negative); Leukocyte Esterase-Dipstick 25 /ul (Negative); Nitrite-Dipstick Negative (Negative); Occult Blood-Urine 25 /ul (Negative); Protein-Dipstick Negative (Negative); Urine Bilirubin Dipstick Negative (Negative); Urine Clarity Clear (Clear); Urine Urobilinogen Normal (Normal)
[2023-12-23 21:21] LABS: Red Blood Cells-Urine 0-5 SEEN /hpf (0-5)
[2023-12-23 21:22] LABS: White Blood Cells 0-5 SEEN /hpf (0-5)
== END 2023-12-23 23:43 | disposition home or self-care (01) ==
PROVIDERS: Emergency Provider Emergency Medicine; Visit Provider Emergency Medicine
DX: I10 Essential (primary) hypertension (principal); T78.40XA Allergy, unspecified, initial encounter; F17.210 Nicotine dependence, cigarettes, uncomplicated; X58.XXXA Exposure to other specified factors, initial encounter
CPT/HCPCS: 80048; 81001; 85025; 99283